=== PATIENT | male | born 1985 | race Two or more races ===

== ENCOUNTER 2023-10-31 08:28 | Outpatient (CLI) | payer OTHER | END 2023-10-31 08:37 | disposition home or self-care (01) | LOC: SONOGRAMA 08:28 | PROVIDERS: ATTEND Pathology Anatomic Pathology & Clinical Pathology | DX: D34 Benign neoplasm of thyroid gland (principal); E04.9 Nontoxic goiter, unspecified ==

== ENCOUNTER 2024-01-02 08:45 | Outpatient (CLI) | payer OTHER | END 2024-01-02 08:47 | disposition home or self-care (01) | LOC: SONOGRAMA 08:45 | PROVIDERS: ATTEND Pathology Anatomic Pathology | DX: D44.0 Neoplasm of uncertain behavior of thyroid gland (principal); E04.2 Nontoxic multinodular goiter ==

== ENCOUNTER 2024-06-26 07:48 | Outpatient (CLI) | payer OTHER ==
[2024-06-26 09:33] LABS: T4 FREE 0.87 NG/ML (0.76-1.46); TSH 1.13 uIU/mL (0.358-3.74)
== END 2024-06-26 07:49 | disposition home or self-care (01) ==
LOC: LAB 07:48
PROVIDERS: ATTEND Surgery
DX: Z09 Encounter for follow-up examination after completed treatment for conditions other than malignant neoplasm (principal); E04.2 Nontoxic multinodular goiter